=== PATIENT | male | born 1960 | race Native Hawaiian/Other Pacific Islander ===

== ENCOUNTER 2020-09-06 07:37 | Outpatient (CLI) | payer BC | END 2020-09-06 21:11 | disposition home or self-care (01) | LOC: CT 07:37 | PROVIDERS: ATTEND Physician Assistant | DX: N28.9 Disorder of kidney and ureter, unspecified (principal); M54.9 Dorsalgia, unspecified; H66.90 Otitis media, unspecified, unspecified ear | CPT/HCPCS: 36415; 82565; 84520 ==

== ENCOUNTER → 2021-04-18 | Outpatient (CLI) | payer BC ==
[~2021-04-18] VITALS: Ht 170.2 cm; Wt 81.6 kg
== END ==
LOC: INF 08:00
PROVIDERS: ATTEND Internal Medicine Endocrinology, Diabetes & Metabolism
PROC: 30233N1 Transfusion of Nonautologous Red Blood Cells into Peripheral Vein, Percutaneous Approach (ICD-10-PCS; principal; 2021-04-18)
DX: C67.9 Malignant neoplasm of bladder, unspecified (principal)
CPT/HCPCS: 36430; 36591; 85014; 85018; 86850; 86900; 86901; 86922; 96374; P9016